=== PATIENT | female | born 1995 | race Asian ===

== ENCOUNTER 2020-05-03 20:40 | Emergency (ER) | payer OTHER, SELFPAY ==
[2020-05-03 20:41] VITALS: BP 129/60; PULSE 77; RESP 16; TEMP 36.4; O2SAT 98; BMI 25.7
--- NOTE | 2020-05-03 21:11 | DI.US.S_ITS ---
PROCEDURE: US PELVIC COMPLETE INDICATIONS: PAIN, DISCHARGE TECHNIQUE: Real-time scanning was performed of the pelvic organs, with image documentation. Additional endovaginal scanning was necessary due to incomplete visualization of the adnexal and endometrial structures by transabdominal scanning. COMPARISON: None. FINDINGS: Transabdominal scanning: Limited scanning through the kidneys shows no hydronephrosis. No pathologic free abdominal or pelvic fluid. Endovaginal scanning: Uterus: Uterus is normal in size at 7.7 x 4.2 x 5.6 cm. The endometrium measures 5 mm in combined thickness. No focal myometrial lesions are evident. The cervix is unremarkable. Ovaries: The right ovary is enlarged and measures 6.8 x 4.3 x 5.1 cm, which is related to 2 simple appearing separate cyst. The smaller cyst measures 3.0 x 2.8 x 3.7 cm. The larger cyst measures 2.8 x 3.7 x 4.0 cm. No internal debris is evident. Blood flow is demonstrated to the right ovary, which demonstrates a normal arterial Doppler waveform. The left ovary is normal in size and measures 2.3 x 1.4 x 2.2 cm. No cystic or solid left ovarian abnormality is evident. Blood flow is demonstrated to the left ovary, which has a normal arterial Doppler waveform. IMPRESSION: 1. Enlarged right ovary related to 2 simple appearing ovarian cysts. Followup imaging in 2-3 months is recommended to document resolution. 2. Unremarkable left ovary and uterus. Note: The preliminary report provided by [employer] is concordant with the final report. Dictated by: Ge Barrera M.D. on 05/04/2020 at 8:05 Approved by: Ge Barrera M.D. on 05/04/2020 at 8:08
[2020-05-03] MEDS: SODIUM CHLORIDE 0.9% 1,000 ML 1000 ML IV (21:28)
[2020-05-03] MEDS: KETOROLAC 60 MG/2 ML VIAL 15 MG IV (21:28)
[2020-05-03 21:29] LABS: Add Manual Diff / Slide Review NO; Basophils Absolute Auto 0 /uL (0-100); Basophils Percent Auto 0.4 % (0-2); Eosinophils Absolute Auto 300 /uL (0-450); Eosinophils Percent Auto 3.1 % (2-4); Hematocrit 36.4 % (36-46); Hemoglobin 11.8 g/dL (12.0-16.0); Lymphocytes Absolute Auto 3900 /uL (1100-4500); Lymphocytes Percent Auto 46.3 % (25-40); Mean Corpuscular HGB Conc 32.4 % (30-36); Mean Corpuscular Hemoglobin 22.1 PG (26-34); Mean Corpuscular Volume 68.2 fL (80-100); Monocytes Absolute Auto 600 /uL (0-900); Monocytes Percent Auto 7.4 % (3-14); Neutrophils Absolute Auto 3600 /uL (1500-7000); Neutrophils Percent Auto 42.8 % (50-75); Platelet Count 149 X10^3/uL (150-400); Red Blood Cell Count 5.34 X10^6/uL (4.0-5.2); Red Cell Distribution Width 14.6 % (11.6-14.8); White Blood Cell Count 8.5 X10^3/uL (4.5-11.0)
[2020-05-03 21:38] LABS: BUN Creatinine Ratio 33.3 (6-22); Blood Urea Nitrogen 20 mg/dL (7-17); Carbon Dioxide 21 mmol/L (22-32); Chloride 106 mmol/L (98-107); Estimated Glomerular Filt Rate > 60.0 mL/min (>60); Glucose 96 mg/dL (70-100); HEMOLYSIS < 15 (0-50); Potassium 3.7 mmol/L (3.4-5.1); Sodium 136 mmol/L (137-145)
--- NOTE | 2020-05-03 22:24 | ED_ITS ---
HPI - Female Genitourinary General Chief complaint: Urogenital-Female Stated complaint: pelvic pain x3 wks Time Seen by Provider: 05/03/20 20:41 Source: patient and other Mode of arrival: Ambulatory History of Present Illness HPI Narrative: 24-year-old female nonsmoker with benign medical history presents with a chief complaint of upwards of 3 weeks of pelvic pain with discharge. She was seen by her primary care provider few weeks ago and had a thorough exam including a pelvic and a by manual with suspicion of PID. She had been placed on antibiotics which she had recently finished. She presents today because she does have some ongoing lower pelvic pain which seems to be worse on the right and thinks she may still have occasional pelvic drainage. She denies dysuria, frequency or urgency. She denies fever or chills. She has had no chest pain or shortness of breath. MD Complaint: vaginal discharge and pelvic pain Onset (ago): week(s) Location: suprapubic and RLQ Female Urogenital Radiation: Non-Radiating Severity: moderate Quality: Aching Duration: intermittent Relieving factors: none Exacerbating factors: intercourse Vaginal discharge: white Patient : No Associated symptoms: denies other symptoms Related Data Allergies Allergy/AdvReac Type Severity Reaction Status Date / Time No Known Drug Allergies Allergy Verified 05/03/20 22:07 Review of Systems Constitutional Constitutional: Denies chills, Denies fatigue, Denies fever(s), Denies frequent falls, Denies lethargy and Denies weakness Eyes Eyes: Denies change in vision, Denies eye discharge, Denies irritation and Denies loss of vision ENT Ears, Nose, Mouth, and Throat: Denies change in voice, Denies dizziness, Denies neck pain, Denies sore throat and Denies throat swelling Cardiovascular Cardiovascular: Denies chest pain, Denies irregular heart rhythm, Denies lightheadedness, Denies palpitations, Denies dyspnea, Denies dyspnea on exertion and Denies orthopnea Respiratory Respiratory: Denies cough, Denies dyspnea, Denies dyspnea on exertion and Denies wheezing Gastrointestinal Gastrointestinal: Denies abdominal pain, Denies change in bowel habits, Denies diarrhea, Denies nausea and Denies vomiting Genitourinary Genitourinary: Reports dyspareunia Musculoskeletal Musculoskeletal: Denies neck pain and Denies numbness Integumentary/Breasts Skin/Breast: Denies pruritus, Denies erythema, Denies rash and Denies wounds Neurologic Neurologic: Denies behavioral changes, Denies confusion, Denies dizziness, Denies frequent falls, Denies loss of vision, Denies numbness and Denies weakness Psychiatric Psychiatric: Denies anxiety, Denies behavioral changes, Denies confusion, Denies depression, Denies homicidal ideation and Denies suicidal ideation Endocrine Endocrine: Denies fatigue, Denies flushing and Denies palpitations Hematologic/Lymphatic Hematologic/Lymphatic: Denies easy bruising Allergic/Immunologic Allergic/Immunologic: Denies urticaria, Denies throat swelling and Denies wheezing Patient History Substance Use Type: does not use Exam Narrative Exam Narrative: GENERAL: [24] year old patient appears stated age. Well- nourished, well-developed patient, in mild distress. HEAD: Atraumatic. Normocephalic. EYES: Pupils equal round and reactive. Extraocular motions intact. No scleral icterus. No injection or drainage. ENT: Nose without bleeding, purulent drainage. Throat without erythema, tonsillar hypertrophy or exudate. Airway patent. NECK: Trachea midline. Non tender CARDIOVASCULAR: Regular rate and rhythm without murmurs, gallops, or rubs. RESPIRATORY: Clear to auscultation. Breath sounds equal bilaterally. No wheezes, rales, or rhonchi. GASTROINTESTINAL: Abdomen soft, non-tender, nondistended. Mild tenderness to pal pation in RLQ PELVIC: No drainage. No cervical erythema. No CMT or adnexal fullness EXTREMITIES: No edema or joint tenderness. BACK: Nontender without deformity or crepitance. No flank tenderness. NEURO: AOx3. SKIN: No rash or erythema of visible areas Initial Vital Signs Initial Vital Signs: Vital Signs Temperature 97.6 F 05/03/20 20:41 Pulse Rate 77 05/03/20 20:41 Respiratory Rate 16 05/03/20 20:41 Blood Pressure 129/60 05/03/20 20:41 Pulse Oximetry 98 05/03/20 20:41 Course Orders Ordered: ED Orders 05/03/20 21:11 US pelvic complete Stat 05/03/20 21:21 Basic Metabolic Panel Stat Complete Blood Count AUTO DIFF Stat 05/03/20 22:34 Genital Culture Stat Wet Prep Tric BV [place] Stat Discontinued Medications Sodium Chloride (Normal Saline 0.9%) 1,000 mls @ 1,000 mls/hr IV BOLUS ONE Stop: 05/03/20 22:10 Last Infusion: 05/03/20 22:26 Dose: 0 mls/hr Documented by: Admin: 05/03/20 21:28 Dose: 1,000 mls/hr Documented by: OBDULIA Ketorolac Tromethamine (Toradol) 15 mg IV NOW ONE Stop: 05/03/20 21:12 Last Admin: 05/03/20 21:28 Dose: 15 mg Documented by: OBDULIA Vital Signs Vital signs: Vital Signs - 8 hr 05/03/20 22:36 Temperature 97.8 F Pulse Rate 70 Respiratory Rate 16 Blood Pressure 110/56 L Pulse Oximetry 99 MDM - Female Genitourinary Lab Data Result diagrams: 05/03/20 21:21 05/03/20 21:21 Labs: Lab Results 05/03/20 05/03/20 Range/Units 21:21 21:21 WBC 8.5 (4.5-11.0) X10^3/uL RBC 5.34 H (4.0-5.2) X10^6/uL Hgb 11.8 L (12.0-16.0) g/dL Hct 36.4 (36-46) % MCV 68.2 L (80-100) fL MCH 22.1 L (26-34) PG MCHC 32.4 (30-36) % RDW 14.6 (11.6-14.8) % Plt Count 149 L (150-400) X10^3/uL Neut % (Auto) 42.8 L (50-75) % Lymph % (Auto) 46.3 H (25-40) % [place] % (Auto) 7.4 (3-14) % Eos % (Auto) 3.1 (2-4) % Baso % (Auto) 0.4 (0-2) % Neut # (Auto) 3600 (8121-0573) /uL Lymph # (Auto) 3900 (6745-0143) /uL [place] # (Auto) 600 (0-900) /uL Eos # (Auto) 300 (0-450) /uL Baso # (Auto) 0 (0-100) /uL RBC Morphology See below Anisocytosis 1+ H Microcytosis 1+ H Sodium 136 L (137-145) mmol/L Potassium 3.7 (3.4-5.1) mmol/L Chloride 106 (98-107) mmol/L Carbon Dioxide 21 L (22-32) mmol/L BUN 20 H (7-17) mg/dL Creatinine 0.60 (0.52-1.04) mg/dL Estimated GFR > 60.0 (>60) mL/min BUN/Creatinine Ratio 33.3 H (6-22) Glucose 96 (70-100) mg/dL Calcium 9.0 (8.4-10.2) mg/dL Point of Care Testing Test Results Negative Urine Dip Bedside Urine Glucose Negative Bedside Urine Bilirubin - Negative Bedside Urine Ketone +/- 5 Urine Specific [place] 1.030 Bedside Urine Occult Blood - Negative Bedside Urine pH 6.0 Bedside Urine Protein + 30 Bedside Urine Urobilinogen +/- 1mg Bedside Urine Leukocytes - Negative Esterase Imaging Data US - RADIOLOGIC ELECTRONIC SPECIALIST: Radiologist's Impression: R ovarian cyst Discharge Plan Departure Patient Disposition: Home Clinical Impression: Ovarian cyst Qualifiers: Laterality: right Qualified Code(s): N83.201 - Unspecified ovarian cyst, right side Discharge Date/Time: 05/03/20 22:37 Instructions: DI for Ovarian Cyst Activity Restrictions/Additional Instructions: *You have been diagnosed with [ovarian cyst] *What to do: *Take medications as directed: Motrin for inflammation and pain *Follow up with your primary care provider in 2-3 days, call for an appointment. Let them know you were seen in the Emergency Department and that we ask that you be seen in follow up *Return to ER if you should have any new, worsening or concerning symptoms
[2020-05-03 22:25] LABS: Anisocytosis 1+; Microcytosis 1+
[2020-05-03 22:36] VITALS: BP 110/56; PULSE 70; RESP 16; TEMP 36.6; O2SAT 99
== END 2020-05-03 22:37 | disposition home or self-care (01) ==
PROVIDERS: Emergency Provider Emergency Medicine
DX: N83.201 Unspecified ovarian cyst, right side (principal); N94.10 Unspecified dyspareunia
CPT/HCPCS: 36415; 76830; 76856; 80048; 81003; 81025; 85025; 87070; 87205; 87210; 87252; 96361; 96374; 99284; J1885

== ENCOUNTER 2021-03-14 08:34 | Emergency (ER) | payer OTHER, SELFPAY ==
[2021-03-14 08:46] VITALS: BP 126/68; PULSE 65; RESP 16; TEMP 37; O2SAT 98; BMI 27.0
--- NOTE | 2021-03-14 09:34 | ED.PREGNANCY ---
HPI - General Chief complaint: OB/Uterine Contractions Stated complaint: 6 WEEKS PREG AND BLEEDING Time Seen by Provider: 03/14/21 09:34 Source: patient and family (fiance) Mode of arrival: Ambulatory Limitations: no limitations History of Present Illness HPI Narrative: This is a 25-year-old female at 6 weeks and 6 days by dates with a last menstrual period of January 25, 2021. Patient states she has had mild spotting with brownish blood for the past week and today noticed large gush and noted some very small clots on her underwear as well as blood in the toilet. Patient has had some mild cramping but denies any other symptoms. She denies any fevers or chills. No chest pain or shortness of breath, no lightheadedness or passing out. She has had some nausea for the past week but no emesis. She denies any other abdominal or flank pain. She has noted some frequency but no dysuria, urgency or incontinence. She has had alternating diarrhea and constipation. Patient states that she did have a and HCG test at 4 weeks which was 148 and followed at 5 weeks which was in the 2000 range. She has a appointment established at [facility] but has not been seen or had an ultrasound at this point. Patient is otherwise healthy with a prior history of migraines and seasonal allergies. She is only taking her allergy medication and stopped her migraine medication. She has had an appendectomy as well as an ex lap for endometriosis in the past. Patient is not allergic to any medications. No tobacco, she denies any alcohol since finding out she was and no illicit. She is accompanied by her fiance today. Patient defers any medication for pain. Date of Last Menstrual Period: 01/25/21 Patient : Yes Expected Date of Delivery: 11/01/21 Related Data Allergies Allergy/AdvReac Type Severity Reaction Status Date / Time No Known Drug Allergies Allergy Verified 05/03/20 22:07 Review of Systems Review of Systems ROS Unobtainable: All systems reviewed & are unremarkable except as noted in HPI and below PMFSH - Past Medical History Medical history: Reports other (Migraines) Surgical history: Reports appendectomy and other (Ex lap for endometriosis.) Date of Last Menstrual Period: 01/25/21 Patient : Yes Expected Date of Delivery: 11/01/21 Exam Narrative Exam Narrative: GENERAL: Alert and oriented x three, well-nourished female in mild distress. HEENT: Head normocephalic, atraumatic, EOMI, pupils reactive, face symmetric, moist mucous membranes NECK: Supple, full range of motion CARDIOVASCULAR: Regular rate and rhythm without murmurs, rubs or gallops. RESPIRATORY: Breath sounds equal bilaterally, no wheezes rales or rhonchi. ABDOMEN: Soft, nontender. Normoactive bowel sounds all 4 quadrants. No guarding or rebound, rigidity, no mass : No CVA tenderness EXTREMITIES: Normal range of motion, no clubbing or edema. Neurovascularly intact NEUROLOGICAL: Cranial nerves II through XII grossly intact. Moving all extremities SKIN: Warm, dry, no petechiae, no rashes or lesions. Initial Vital Signs Initial Vital Signs: Vital Signs Temperature 98.6 F 03/14/21 08:46 Pulse Rate 65 03/14/21 08:46 Respiratory Rate 16 03/14/21 08:46 Blood Pressure 126/68 03/14/21 08:46 Pulse Oximetry 98 03/14/21 08:46 Course Orders Ordered: ED Orders 03/14/21 11:10 ABO RH Type Stat Complete Blood Count AUTO DIFF Stat Comprehensive Metabolic Panel Stat HCG Quantitative /Beta subunit Stat Reevaluation(s) Reevaluation #1: Updated on patient's findings today recommendations from c programmer and need and plan for follow up. Time: 13:40 Consultations Consultation #1: Dr. Wright-the patient's ultrasound imaging. She recommends serial HCG, ultrasound and bleeding precautions. Patient high risk for miscarriage with mono mono twin already. Time: 13:40 Vital Signs Vital signs: Vital Signs - 8 hr 03/14/21 11:26 03/14/21 13:59 Pulse Rate 60 60 Respiratory Rate 16 16 Blood Pressure 119/67 119/66 Pulse Oximetry 99 100 MDM - OB/Uterine Contractions Lab Data Attestation: I reviewed the patient's lab results. Result diagrams: 03/14/21 11:10 03/14/21 11:10 Labs: Lab Results 03/14/21 03/14/21 03/14/21 Range/Units 08:41 11:10 11:10 WBC 8.2 (4.5-11.0) X10^3/uL RBC 5.59 H (4.0-5.2) X10^6/uL Hgb 12.3 (12.0-16.0) g/dL Hct 38.2 (36-46) % MCV 68.3 L (80-100) fL MCH 22.1 L (26-34) PG MCHC 32.3 (30-36) % RDW 15.2 H (11.6-14.8) % Plt Count 148 L (150-400) X10^3/uL Neut % (Auto) 44.8 L (50-75) % Lymph % (Auto) 41.9 H (25-40) % [place] % (Auto) 7.9 (3-14) % Eos % (Auto) 5.0 H (2-4) % Baso % (Auto) 0.4 (0-2) % Neut # (Auto) 3700 (7379-9906) /uL Lymph # (Auto) 3400 (4343-0670) /uL [place] # (Auto) 600 (0-900) /uL Eos # (Auto) 400 (0-450) /uL Baso # (Auto) 0 (0-100) /uL RBC Morphology Not Reportable Hypochromasia 3+ H Anisocytosis 1+ H Microcytosis 3+ H Rouleaux 3+ H Sodium 137 (137-145) mmol/L Potassium 4.1 (3.4-5.1) mmol/L Chloride 103 (98-107) mmol/L Carbon Dioxide 26 (22-32) mmol/L BUN 10 (7-17) mg/dL Creatinine 0.60 (0.52-1.04) mg/dL Estimated GFR > 60.0 (>60) mL/min BUN/Creatinine Ratio 16.7 (6-22) Glucose 97 (70-100) mg/dL Calcium 9.3 (8.4-10.2) mg/dL Total Bilirubin 0.3 (0.2-1.3) mg/dL AST 25 (14-36) IU/L ALT 17 (<35) IU/L Alkaline Phosphatase 48 (38-126) U/L Total Protein 7.4 (6.3-8.2) g/dL Albumin 4.2 (3.5-5.0) g/dL Globulin 3.2 (1.7-4.1) g/dL Albumin/Globulin Ratio 1.3 (1.0-2.8) HCG, Quant 95394 mIU/mL Urine Test Positive H (Negative) Blood Type 03/14/21 Range/Units 11:10 WBC (4.5-11.0) X10^3/uL RBC (4.0-5.2) X10^6/uL Hgb (12.0-16.0) g/dL Hct (36-46) % MCV (80-100) fL MCH (26-34) PG MCHC (30-36) % RDW (11.6-14.8) % Plt Count (150-400) X10^3/uL Neut % (Auto) (50-75) % Lymph % (Auto) (25-40) % [place] % (Auto) (3-14) % Eos % (Auto) (2-4) % Baso % (Auto) (0-2) % Neut # (Auto) (6487-6371) /uL Lymph # (Auto) (7020-3015) /uL [place] # (Auto) (0-900) /uL Eos # (Auto) (0-450) /uL Baso # (Auto) (0-100) /uL RBC Morphology Hypochromasia Anisocytosis Microcytosis [place]aux Sodium (137-145) mmol/L Potassium (3.4-5.1) mmol/L Chloride (98-107) mmol/L Carbon Dioxide (22-32) mmol/L BUN (7-17) mg/dL Creatinine (0.52-1.04) mg/dL Estimated GFR (>60) mL/min BUN/Creatinine Ratio (6-22) Glucose (70-100) mg/dL Calcium (8.4-10.2) mg/dL Total Bilirubin (0.2-1.3) mg/dL AST (14-36) IU/L ALT (<35) IU/L Alkaline Phosphatase (38-126) U/L Total Protein (6.3-8.2) g/dL Albumin (3.5-5.0) g/dL Globulin (1.7-4.1) g/dL Albumin/Globulin Ratio (1.0-2.8) HCG, Quant mIU/mL Urine Test (Negative) Blood Type O Positive Point of Care Testing Test Results Positive Urine Dip Bedside Urine Glucose 100 mg/dl Bedside Urine Bilirubin - Negative Bedside Urine Ketone - Negative Urine Specific [place] 1.020 Bedside Urine Occult Blood +++ Bedside Urine pH 6.0 Bedside Urine Protein - Negative Bedside Urine Urobilinogen - Negative Bedside Urine Nitrite - Negative Bedside Urine Leukocytes - Negative Esterase Imaging Data US - OB: Radiologist's Impression: [address] [id number] ReportSigned Patient: Trice MontielR#: [id number]: 1995Acct:[id number]/Sex: 25 / FDate of Service: 03/14/21Loc: EDAccession Number: [id number] Procedure: US OB <= 14 weeks fetus Ordering Provider: Sruthi Goldstein D.O. PROCEDURE: US OB <= 14 WEEKS FETUS INDICATIONS: VAGINAL BLEEDING OUTSIDE/PRIOR DATING DATA: Last menstrual period (LMP): 01/30/2021 LMP-based estimated date of delivery (MANOLO): 11/06/2021 First dating scan (date and location): Today. Estimated date of delivery (MANOLO) from first dating scan: 11/09/2021 TECHNIQUE: Real-time scanning was performed of the fetus and maternal pelvic organs, with image documentation. Endovaginal scanning was also performed to better visualize the fetus and maternal ovaries. COMPARISON: None. FINDINGS: Embryo: There is a single gestational sac with gestational sac diameter measuring 1.0 centimeters corresponding to 5 weeks 5 days. Within the gestational sac there are 2 separate yolk sacs measuring 1.6 and 3.1 millimeters. There is large volume of perigestational hemorrhage. This encompasses approximately 50 percent of the adjacent gestational sac. Measurement variability in dating: +/- 4 weeks by LMP, +/- 7 days by mean sac diameter (use before 6 weeks gestation if crown-rump length not able to be measured), +/- 5 days by crown-rump length (up to 8 weeks 6 days gestation), +/- 7 days by crown-rump length (up to 13 weeks 6 days gestation). Maternal organs: Left ovarian isoechoic nonvascular lesion likely representing a corpus luteal cysts with peripheral vascularity measuring 2.3 x 1.5 x 1.4 centimeters. There is a simple appearing right ovarian cyst measuring 3.9 x 3.9 x 2.3 centimeters. IMPRESSION: Single gestational sac with likely 2 yolk sacs suggestive of a multi gestational . There is no pole. This corresponds to gestational age of 5 weeks 5 days by mean gestational sac measurement. Recommend clinical follow-up with repeat ultrasound in 7-10 days as necessary. Large volume of perigestational blood products encompassing approximately 50 percent of the gestational sac. Dictated by: Miquel Parker D.O. on 03/14/2021 at 10:04 Approved by: Miquel Parker D.O. on 03/14/2021 at 10:15 [facility] Narrative Medical decision making narrative: This is a 25-year-old female comes emergency department with complaint of vaginal bleeding in known . Patient is 6 weeks and 6 days by dates. She is 5 weeks and 5 by ultrasound. She has yolk sacs a but a single gestational sac and there is bleed present. Discussed patient's hCG has been climbing she had outpatient HCG levels of 150 range 2 weeks ago and 2100 range 1 week ago. Patient has had some increased bleeding initially there was just some minor spotting patient is not having any significant pain. Discussed with patient at this time will be watchful waiting with monitoring with ultrasound and hCG levels she has follow-up at [facility] but is unsure if she has posed to follow with an c programmer or different provider. Given follow-up with our local c programmer as an option as well. Discussed return precautions. Signs and symptoms to watch for and all questions were answered. Discharge Plan Departure Patient Disposition: Home Clinical Impression: Vaginal bleeding in Instructions: DI for Vaginal Bleeding During Activity Restrictions/Additional Instructions: Follow up with configurator for recheck. Call Tuesday morning for an appointment. Gestational age consistent with 5 weeks 5 days and shows a gestational sac with 2 yolk sacs indicating a twin . Share this information with your care provider. It is recommended you have repeat US in the next 7-10 [place] [address]. No heavy lifting, sexual activity or use of tampons until cleared by your physician. Please return for fevers greater 100.4 F, lightheadedness or passing out vaginal bleeding that is soaking through more than 1 large pad per hour shortness of breath, chest pain, persistent vomiting or other new or concerning symptoms. Referrals: Fiona Wright MD [Physician] -
[2021-03-14 10:20] LABS: Pregnancy Test Urine Positive (Negative)
[2021-03-14 11:25] LABS: Add Manual Diff / Slide Review NO; Basophils Absolute Auto 0 /uL (0-100); Basophils Percent Auto 0.4 % (0-2); Eosinophils Absolute Auto 400 /uL (0-450); Hematocrit 38.2 % (36-46); Hemoglobin 12.3 g/dL (12.0-16.0); Lymphocytes Absolute Auto 3400 /uL (1100-4500); Lymphocytes Percent Auto 41.9 % (25-40); Mean Corpuscular HGB Conc 32.3 % (30-36); Mean Corpuscular Hemoglobin 22.1 PG (26-34); Mean Corpuscular Volume 68.3 fL (80-100); Monocytes Absolute Auto 600 /uL (0-900); Monocytes Percent Auto 7.9 % (3-14); Neutrophils Absolute Auto 3700 /uL (1500-7000); Neutrophils Percent Auto 44.8 % (50-75); Platelet Count 148 X10^3/uL (150-400); Red Blood Cell Count 5.59 X10^6/uL (4.0-5.2); Red Cell Distribution Width 15.2 % (11.6-14.8); White Blood Cell Count 8.2 X10^3/uL (4.5-11.0)
[2021-03-14 11:26] VITALS: BP 119/67; PULSE 60; RESP 16; O2SAT 99
[2021-03-14 11:58] LABS: Alanine Aminotransferase 17 IU/L (<35); Albumin 4.2 g/dL (3.5-5.0); Albumin Globulin Ratio 1.3 (1.0-2.8); Alkaline Phosphatase 48 U/L (38-126); Aspartate Aminotransferase 25 IU/L (14-36); BUN Creatinine Ratio 16.7 (6-22); Bilirubin Total 0.3 mg/dL (0.2-1.3); Blood Urea Nitrogen 10 mg/dL (7-17); Calcium 9.3 mg/dL (8.4-10.2); Carbon Dioxide 26 mmol/L (22-32); Chloride 103 mmol/L (98-107); Estimated Glomerular Filt Rate > 60.0 mL/min (>60); Globulin 3.2 g/dL (1.7-4.1); Glucose 97 mg/dL (70-100); HEMOLYSIS < 15 (0-50); Potassium 4.1 mmol/L (3.4-5.1); Sodium 137 mmol/L (137-145); Total Protein 7.4 g/dL (6.3-8.2)
[2021-03-14 11:59] LABS: Anisocytosis 1+; Hypochromasia 3+; Microcytosis 3+
[2021-03-14 12:38] LABS: HCG Quantitative /Beta subunit 23286 mIU/mL
[2021-03-14 13:59] VITALS: BP 119/66; PULSE 60; RESP 16; O2SAT 100
[2021-03-14 14:48] LABS: Rouleaux 3+
== END 2021-03-14 14:01 | disposition home or self-care (01) ==
PROVIDERS: Emergency Provider Emergency Medicine
DX: O20.9 Hemorrhage in early pregnancy, unspecified (principal); Z3A.01 Less than 8 weeks gestation of pregnancy
CPT/HCPCS: 36415; 76801; 80053; 81003; 81025; 84702; 85025; 86900; 86901; 99284

== ENCOUNTER → 2021-03-16 15:33 | Outpatient (CLI) | payer OTHER, SELFPAY ==
[2021-03-16 18:39] LABS: HCG Quantitative /Beta subunit 31481 mIU/mL
== END ==
PROVIDERS: Referring Provider Obstetrics & Gynecology; Visit Provider Obstetrics & Gynecology
DX: O46.90 Antepartum hemorrhage, unspecified, unspecified trimester (principal)
CPT/HCPCS: 36415; 84702

== ENCOUNTER → 2021-03-23 14:29 | Outpatient (CLI) | payer OTHER, SELFPAY ==
--- NOTE | 2021-03-23 14:30 | DI.US.S_ITS ---
PROCEDURE: US OB <= 14 WEEKS FETUS INDICATIONS: BLEEDING ?TWIN OUTSIDE/PRIOR DATING DATA: Last menstrual period (LMP): 01/30/2021 . LMP-based estimated date of delivery (MANOLO): 11/06/2021 . First dating scan (date and location): 03/14/2021 Estimated date of delivery (MANOLO) from first dating scan: 11/09/2021 . TECHNIQUE: Real-time scanning was performed of the fetuses and maternal pelvic organs, with image documentation. Endovaginal scanning: Performed for better visualization of the fetuses and maternal adnexal structures. COMPARISON: [facility], OB <= 14 WEEKS FETUS, 03/14/2021, 10:18. FINDINGS: General: Single gestational sac is again noted containing 2 distinct poles. First a crown-rump length measures 7.4 mm corresponding with a 6 week 4 day gestation. heart rate 114 beats per minute Fetus B has a crown-rump length of 9.2 mm corresponding to a gestational age of 7 week 0 days. heart rate 124 beats per minute There is a large subchorionic/implantation bleed measuring 3.9 x 2.2 x 1.0 cm, previously 4.9 x 2.3 x 1.8 cm. Measurement variability in dating: +/- 4 weeks by LMP, +/- 7 days by mean sac diameter (use before 6 weeks gestation if crown-rump length unable to be measured), +/- 5 days by crown-rump length (up to 8 weeks 6 days gestation), +/- 7 days by crown-rump length (up to 13 weeks 6 days gestation). Maternal organs: Ovaries right-sided simple ovarian cyst measures 3.4 x 3.1 x 2.4 cm, previously 3.9 x 2.3 cm. Both ovaries show appropriate vascularity without torsion. IMPRESSION: 1. Twin live corresponds to an approximate 7 week gestation. 2. Large perigestational bleed is similar to the prior exam. 3. Stable right simple ovarian cyst without evidence of torsion bilaterally Dictated by: Giorgi Nelson M.D. on 03/24/2021 at 16:16 Approved by: Giorgi Nelson M.D. on 03/24/2021 at 16:31
== END ==
PROVIDERS: Referring Provider Obstetrics & Gynecology; Visit Provider Obstetrics & Gynecology
DX: O46.91 Antepartum hemorrhage, unspecified, first trimester (principal); O30.011 Twin pregnancy, monochorionic/monoamniotic, first trimester; O34.81 Maternal care for other abnormalities of pelvic organs, first trimester; N83.291 Other ovarian cyst, right side; Z3A.01 Less than 8 weeks gestation of pregnancy
CPT/HCPCS: 76801; 76802; 76830

== ENCOUNTER → 2021-05-26 14:45 | Outpatient (CLI) | payer OTHER, SELFPAY ==
[2021-05-26 17:08] LABS: Add Manual Diff / Slide Review NO; Basophils Absolute Auto 0 /uL (0-100); Basophils Percent Auto 0.3 % (0-2); Eosinophils Absolute Auto 700 /uL (0-450); Eosinophils Percent Auto 6.5 % (2-4); Hematocrit 36.6 % (36-46); Hemoglobin 11.7 g/dL (12.0-16.0); Lymphocytes Absolute Auto 3600 /uL (1100-4500); Lymphocytes Percent Auto 35.1 % (25-40); Mean Corpuscular Hemoglobin 21.8 PG (26-34); Mean Corpuscular Volume 68.1 fL (80-100); Monocytes Absolute Auto 700 /uL (0-900); Monocytes Percent Auto 6.9 % (3-14); Neutrophils Absolute Auto 5200 /uL (1500-7000); Neutrophils Percent Auto 51.2 % (50-75); Platelet Count 163 X10^3/uL (150-400); Red Blood Cell Count 5.37 X10^6/uL (4.0-5.2); Red Cell Distribution Width 14.3 % (11.6-14.8); White Blood Cell Count 10.2 X10^3/uL (4.5-11.0)
[2021-05-26 17:47] LABS: Appearance Urine UA CLEAR; Bilirubin Urine UA NEGATIVE (NEGATIVE); Color Urine UA YELLOW; Glucose Urine UA 1+ g/dL (Negative); Ketones Urine UA NEGATIVE (NEGATIVE); Leukocyte Esterase Urine UA NEGATIVE (NEGATIVE); Nitrite Urine UA NEGATIVE (Negative); Occult Blood Urine UA NEGATIVE (Negative); Protein Urine UA NEGATIVE (Negative); Urobilinogen Urine UA 0.2 E.U./dL (0.2)
[2021-05-26 18:14] LABS: Hypochromasia 1+; Microcytosis 1+
[2021-05-27 05:21] LABS: HSV 2 IGG AB < 0.91 index (0.00-0.90); Varicella IgG Antibody <135 index (Immune >165)
[2021-05-27 05:42] LABS: RPR Screen Non Reactive (Non Reactive)
[2021-05-28 16:27] LABS: Hepatitis B Surface Antigen NEGATIVE s/c (NEGATIVE); Rubella Antibody IgG 11.6 IU/mL (>15)
[2021-05-28 16:46] LABS: HIV 1 & 2 Ab/Ag 4th Gen Combo NEGATIVE (NEGATIVE); Hep C Virus Ab w/Reflex Quant NEGATIVE s/c (NEGATIVE)
[2021-05-28 20:11] LABS: AFP, Serum 132.9 ng/mL (.); Calc Gestational Age Ultrasound (.); Estriol, Free 2.22 ng/mL (.); Inhibin A, MoM 3.44 (.); Maternal Ethnicity Other (.); Maternal Weight 146 lbs (.); Number of Fetuses Twins (.); OSBR Risk 1 IN 176 (.); Results Report (.); Test Results *Screen Negative* (.); hCG, MoM 1.48 (.); hCG, Serum 60242 mIU/mL (.)
== END ==
PROVIDERS: Referring Provider Obstetrics & Gynecology; Visit Provider Obstetrics & Gynecology
DX: Z34.02 Encounter for supervision of normal first pregnancy, second trimester (principal); Z3A.16 16 weeks gestation of pregnancy
CPT/HCPCS: 36415; 80055; 81003; 82105; 82677; 84702; 86336; 86695; 86696; 86787; 86803; 86850; 86900; 86901; 87389

== ENCOUNTER → 2021-06-10 10:53 | Outpatient (CLI) | payer OTHER, SELFPAY ==
[2021-06-10 12:56] LABS: Hematocrit 36.1 % (36-46); Hemoglobin 11.8 g/dL (12.0-16.0)
[2021-06-10 13:27] LABS: GTT (PREG) 1 Hour PP 50gm Dose 157 mg/dL (76-139)
== END ==
PROVIDERS: Referring Provider Obstetrics & Gynecology; Visit Provider Obstetrics & Gynecology
DX: Z34.02 Encounter for supervision of normal first pregnancy, second trimester (principal); Z3A.18 18 weeks gestation of pregnancy
CPT/HCPCS: 36415; 82950; 85014; 85018